=== PATIENT | female | born 1960 | race Caucasian/White ===

== ENCOUNTER 2017-07-27 02:57 | Emergency (ER) | payer OTHER ==
[2017-07-27] MEDS: ACETAMINOPHEN 325 MG TAB PO (03:44)
== END 2017-07-27 05:21 | disposition home or self-care (01) ==
LOC: FTE 02:57
DX: J20.9 Acute bronchitis, unspecified (principal)
CPT/HCPCS: 71045; 87400; 99284-25

== ENCOUNTER 2018-08-31 09:15 | Emergency (ER) | payer OTHER | END 2018-08-31 11:03 | disposition home or self-care (01) | LOC: FTE 09:15 | DX: M25.561 Pain in right knee (principal) | CPT/HCPCS: 73562; 73562-50; 99283-25 ==